=== PATIENT | female | born 1965 | race Caucasian/White ===

== ENCOUNTER 2020-05-31 09:19 | Emergency (ER) | payer OTHER, SELFPAY ==
[2020-05-31 09:34] VITALS: BP 162/81; PULSE 69; RESP 16; TEMP 36.7; O2SAT 98; BMI 26.3
--- NOTE | 2020-05-31 09:48 | ED.EXTPRO ---
HPI - Extremity Problem General Chief complaint: Extremity Problem,Nontraumatic Stated complaint: right hand pain, swelling Time Seen by Provider: 05/31/20 09:46 Source: patient Mode of arrival: Ambulatory Limitations: no limitations History of Present Illness HPI Narrative: Patient is a 54-year-old female here for evaluation of bruising to the back of her right hand. States that last evening she was lifting a glass to take a drink when she had sudden pain in the back of her right hand. Since then she has had bruising and discomfort. States she did not hit on anything. No fevers. This morning she thought the swelling was getting worse so she came in for evaluation. She has been placing ice over the area. Review of Systems Constitutional Constitutional: Denies fever(s) and Denies weakness Cardiovascular Cardiovascular: Denies chest pain and Denies dyspnea Respiratory Respiratory: Denies dyspnea Gastrointestinal Gastrointestinal: Denies abdominal pain Musculoskeletal Comments: Pain and swelling and bruising to right hand Integumentary/Breasts Comments: Bruising to the back of the right hand Neurologic Neurologic: Denies weakness Hematologic/Lymphatic Hematologic/Lymphatic: Denies easy bleeding and Denies easy bruising On Anticoagulants: No Allergic/Immunologic Allergic/Immunologic: Denies urticaria Patient History Medical History Patient denies medical problems Social History Smoking Status: Current every day smoker Smoking Status: Current every day smoker alcohol intake frequency: 0-2 drinks per day Substance Use Type: does not use Exam Initial Vital Signs Initial Vital Signs: Vital Signs Temperature 98.1 F 05/31/20 09:34 Pulse Rate 69 05/31/20 09:34 Respiratory Rate 16 05/31/20 09:34 Blood Pressure 162/81 H 05/31/20 09:34 Pulse Oximetry 98 05/31/20 09:34 Const General: cooperative and comfortable Limitations: mental status not altered [facility] Head: normal to inspection and normocephalic Cardio Pulses: radial pulses present on the right Skin Other: Patient with bruising to the dorsum of the left hand. It does extend distal to the PIP joint of the middle and ring finger but not past the MCP joint of the index and little finger. The thumb is not involved. Does not extend proximal to the wrist. Neuro Sensory Exam: no sensory deficits noted Extrem Other: Swelling to the dorsum of the right hand. Her wrist and elbow are unremarkable Psych Appearance: grossly normal and well kempt Course Orders Ordered: ED Orders 05/31/20 09:48 XR hand RT min 3V Stat Vital Signs Vital signs: Vital Signs - 8 hr 05/31/20 09:34 Temperature 98.1 F Pulse Rate 69 Respiratory Rate 16 Blood Pressure 162/81 H Pulse Oximetry 98 [facility] - Extremity (Nontraumatic) Imaging Data Extremity x-ray #1: Radiologist's Impression: [address] [id number] ReportSigned Patient: Maggie FigueroaMR#: [id number]: 1965Acct:[id number]/Sex: 54 / FDate of Service: 05/31/20Loc: EDAccession Number: [id number] Procedure: XR hand RT min 3V Ordering Provider: Kevyn Wu D.O. PROCEDURE: XR HAND RT MIN 3V INDICATIONS: pain 3rd and 4th metacarpal TECHNIQUE: 3 views of the hand(s) acquired. COMPARISON: None. FINDINGS: Bones: In this patient with this given history, scrutiny is given to 3rd and 4th metacarpals. No abnormalities of these bones can be seen. No fractures or dislocations are seen elsewhere. Carpal bones are normally aligned. No suspicious bony lesions. Age-appropriate bony degenerative changes are seen. Soft tissues: No suspicious soft tissue calcifications. IMPRESSION: Normal appearing 3rd and 4th metacarpals. Unremarkable hand plain film study for age. Dictated by: Jose Beck M.D. on 05/31/2020 at 9:03 Approved by: Jose Beck M.D. on 05/31/2020 at 9:05 [facility] Narrative Medical decision making narrative: Patient is neurovascularly intact. There are no fractures on the x-rays. The skin is warm and appearance of a contusion and not cellulitis. There are no breaks in the skin. There are no vesicles or pustules. Unsure the exact etiology of what caused her symptoms but it does not appear to be infectious and there is no fractures. Recommend conservative treatment for now to include ice and elevation. She was given care instructions and return precautions. She expressed understanding and agreement. Discharge Plan Departure Patient Disposition: Home Clinical Impression: Contusion of hand Instructions: DI for Contusion Activity Restrictions/Additional Instructions: Recommend that you keep ice over the area. Keep your hand elevated. You can take Tylenol/ibuprofen for any discomfort. Contact her primary provider for follow-up. Return to the emergency department for any new or worsening symptoms
[2020-05-31 10:41] VITALS: BP 135/60
== END 2020-05-31 10:56 | disposition home or self-care (01) ==
PROVIDERS: Emergency Provider Emergency Medicine
DX: S60.221A Contusion of right hand, initial encounter (principal)
CPT/HCPCS: 73130; 99281; 99283